=== PATIENT | female | born 1955 | race Caucasian/White ===

== ENCOUNTER → 2017-04-23 | Outpatient (CLI) | payer OTHER ==
[~2017-04-23] MED LIST: ASCO500T8 PO; DOXYCYCLINE PO; TRIA1CAP3 PO
[2017-04-23 16:26] LABS: BLOOD UREA NITROGEN 17 mg/dL (7-18)
[2017-04-23 16:30] LABS: ASPARTATE AMINO TRANSFERASE 36 U/L (15-37)
== END | disposition home or self-care (01) ==
LOC: STAR 15:10
PROVIDERS: ATTEND Surgery
DX: Z01.818 Encounter for other preprocedural examination (principal); D05.11 Intraductal carcinoma in situ of right breast; N62 Hypertrophy of breast; N64.89 Other specified disorders of breast; M54.5 Low back pain; N64.4 Mastodynia; M54.2 Cervicalgia; I10 Essential (primary) hypertension; M19.90 Unspecified osteoarthritis, unspecified site; E66.9 Obesity, unspecified; Z68.37 Body mass index [BMI] 37.0-37.9, adult
CPT/HCPCS: 36415; 80053; 93005

== ENCOUNTER 2017-05-06 11:38 | Day surgery (SDC) | payer OTHER ==
[~2017-05-06] VITALS: Ht 165.1 cm; Wt 98.5 kg
[~2017-05-06 11:38] MED LIST changes: +BACITRACIN 50,000 UNIT ONE; +CEFAZOLIN 1,000 MG ONE; +GENTAMICIN 80 MG/2 ML ONE; +ROPIvacaine/PF 0.5%, 20 ML ONE
[2017-05-06] MEDS ORDERED: LACTATED RINGERS 1,000 ML IV SCH (13:22)
[2017-05-06] MEDS ORDERED: FENTANYL PF 250 MCG/5ML ONE (13:26)
[2017-05-06] MEDS ORDERED: MIDAZOLAM 1 MG/ML, 2ML ONE (13:26)
[2017-05-06] MEDS ORDERED: ACETAMINOPHEN 325 MG TABLET PO PRN (13:30)
[2017-05-06] MEDS ORDERED: BUPIVACAINE/PF 0.5% ONE (13:30)
[2017-05-06] MEDS ORDERED: EPINEPHRINE 1 MG/ML, 1ML ONE (13:30)
[2017-05-06] MEDS ORDERED: OXYcodone 5 MG/5 ML ORAL.SOL UDC PO PRN (13:30)
[2017-05-06] MEDS ORDERED: LABETALOL 5MG/ML, 20ML IV PRN (13:30)
[2017-05-06] MEDS ORDERED: PROMETHAZINE 25 MG/ML, 1ML IV PRN (13:30)
[2017-05-06] MEDS ORDERED: ONDANSETRON 2MG/ML, 2ML IVPush PRN (13:30)
[2017-05-06] MEDS ORDERED: MEPERIDINE/PF 25MG/0.5ML IVPush PRN (13:30)
[2017-05-06] MEDS ORDERED: hydrALAzine 20 MG/ML, 1ML IV PRN (13:30)
[2017-05-06] MEDS ORDERED: ISOSULFAN BLUE 10 MG/ML, 5ML IV ONE (13:30)
[2017-05-06] MEDS ORDERED: HYDROmorphone 1 MG/ML, 1ML IV PRN (13:30)
[2017-05-06] MEDS ORDERED: PROPOFOL 10 MG/ML, 20ML ONE (13:52)
[2017-05-06] MEDS ORDERED: PROPOFOL 50 ML ONE ×2 (13:53→15:04)
[2017-05-06] MEDS ORDERED: ROCURONIUM 10 MG/ML,10ML ONE (13:53)
[2017-05-06] MEDS ORDERED: DEXAMETHASONE 4 MG/ML, 5ML ONE (14:07)
[2017-05-06] MEDS ORDERED: CEFAZOLIN 1,000 MG ONE (14:07)
[2017-05-06] MEDS ORDERED: ROPIvacaine/PF 0.5%, 20 ML ONE (15:26)
[2017-05-06] MEDS ORDERED: ONDANSETRON 2MG/ML, 2ML ONE ×2 (15:57→15:59)
[2017-05-06] MEDS ORDERED: ACETAMINOPHEN 650 MG/20.3 ML UDC ONE (16:43)
[2017-05-06] MEDS ORDERED: ACETAMINOPHEN 325 MG TABLET ONE (16:44)
[2017-05-06] MEDS ORDERED: OXYcodone 5 MG/5 ML ORAL.SOL UDC ONE (16:44)
[2017-05-06] MEDS ORDERED: FENTANYL PF 100 MCG/2ML ONE (16:44)
[2017-05-06] MEDS: FENTANYL PF 100 MCG/2ML IV PRN ×2 (16:48→16:56)
== END 2017-05-06 20:15 | disposition home or self-care (01) ==
LOC: OR 11:38 → 4NOR 19:21 → OUT 20:15
PROVIDERS: ATTEND Plastic Surgery
DX: C50.211 Malignant neoplasm of upper-inner quadrant of right female breast (principal); N62 Hypertrophy of breast; N64.89 Other specified disorders of breast; I10 Essential (primary) hypertension; E66.9 Obesity, unspecified; Z68.36 Body mass index [BMI] 36.0-36.9, adult; M17.0 Bilateral primary osteoarthritis of knee; Z86.718 Personal history of other venous thrombosis and embolism; Z79.899 Other long term (current) drug therapy; Z98.51 Tubal ligation status; Z87.440 Personal history of urinary (tract) infections; Z90.49 Acquired absence of other specified parts of digestive tract; Z87.891 Personal history of nicotine dependence; Z72.89 Other problems related to lifestyle; Z88.0 Allergy status to penicillin; Z88.8 Allergy status to other drugs, medicaments and biological substances; Z82.49 Family history of ischemic heart disease and other diseases of the circulatory system; Z83.3 Family history of diabetes mellitus; Z82.3 Family history of stroke; Z80.0 Family history of malignant neoplasm of digestive organs
CPT/HCPCS: 19285; 19301; 19318; 19366; 38525; 38792; 88307; 88329; 88333; 88334; A9541; C1729; G0206; J0690; J1100; J1580; J2250; J2405; J2704; J2795; J3010; J3490; J0171

== ENCOUNTER → 2017-05-27 | Outpatient (CLI) | payer OTHER ==
[~2017-05-27] MED LIST changes: -BACITRACIN 50,000 UNIT ONE; -CEFAZOLIN 1,000 MG ONE; -GENTAMICIN 80 MG/2 ML ONE; -ROPIvacaine/PF 0.5%, 20 ML ONE
== END | disposition home or self-care (01) ==
LOC: ROC 13:48
PROVIDERS: ATTEND Radiology Radiation Oncology
DX: D05.11 Intraductal carcinoma in situ of right breast (principal); I10 Essential (primary) hypertension; Z86.718 Personal history of other venous thrombosis and embolism
CPT/HCPCS: 99214; G0463

== ENCOUNTER → 2017-06-17 | Outpatient (CLI) | payer OTHER | END | disposition home or self-care (01) | LOC: ROC 10:12 | PROVIDERS: ATTEND Radiology Radiation Oncology | DX: Z08 Encounter for follow-up examination after completed treatment for malignant neoplasm (principal); D05.11 Intraductal carcinoma in situ of right breast | CPT/HCPCS: 99212; G0463 ==

== ENCOUNTER → 2018-03-10 | Outpatient (CLI) | payer OTHER, MEDICARE | END | disposition home or self-care (01) | LOC: CFH 10:57 | PROVIDERS: ATTEND Specialist | DX: Z13.820 Encounter for screening for osteoporosis (principal); M85.88 Other specified disorders of bone density and structure, other site; D05.11 Intraductal carcinoma in situ of right breast; I82.501 Chronic embolism and thrombosis of unspecified deep veins of right lower extremity | CPT/HCPCS: 77080 ==